=== PATIENT | female | born 1975 | race Caucasian/White ===

== ENCOUNTER 2023-12-24 16:22 | Emergency (ER) | payer BC, SELFPAY ==
[2023-12-24 16:26] VITALS: BP 147/89; PULSE 87; RESP 18; TEMP 37.9; O2SAT 97; BMI 31.9
[2023-12-24 17:01] LABS: Influenza Virus A Antigen Negative; Influenza Virus B Antigen Negative; Internal Control Within Normal Limits; SARS-CoV-2 Ag NEGATIVE (NEGATIVE)
[2023-12-24 17:19] VITALS: BP 128/81; PULSE 82; RESP 18; O2SAT 97
--- NOTE | 2023-12-24 17:28 | ED_ITS ---
HPI - General Adult General Chief complaint: Upper Respiratory Infection Stated complaint: Upper Respiratory Infection Time Seen by Provider: 12/24/23 16:48 History of Present Illness HPI narrative: This patient is here for abrupt onset of aches pains chills fever today. She actually does not have a sore throat. She has no runny nose sneezing or coughing. No shortness of breath or wheezing. No urinary symptoms such as frequency urination, no hematuria or dysuria. She does not have any back or flank pain. She has not had any diarrhea. She has not lost any sense of smell. She is otherwise healthy is not on any antibiotics or immune suppressing medications. We have seen multiple multiple patients with influenza today. Related Data Home Medications Medication Instructions Recorded Confirmed No Known Home Medications 12/24/23 12/24/23 Allergies Allergy/AdvReac Type Severity Reaction Status Date / Time No Known Drug Allergies Allergy Verified 12/24/23 16:26 PFSH PFS Social History Smoking status: Current every day smoker Exam Narrative Exam Narrative: Awake alert [place] x 3 no meningeal irritation confusion or altered mental status. She has a low-grade fever. HEENT shows her neck to be soft and supple. Her oropharynx does not show any exudate enanthem's or vesicles. Voice is normal there is no stridor. There is no rhinitis. There is no conjunctivitis. Her lungs are completely clear with no wheeze rales or rhonchi. There is no bronchospasm. Her abdomen is soft and supple with no guarding masses rebound rigidity or tenderness to palpation. Her skin integument is without petechiae purpura rash or any type of exanthem or rash at all. Her joints are not red hot warm or swollen. Constitutional Vital Signs, click to edit/add: Last Vital Signs Temp 100.2 F 12/24/23 16:26 Pulse 82 12/24/23 17:19 Resp 18 12/24/23 17:19 BP 128/81 12/24/23 17:19 Pulse Ox 97 12/24/23 17:19 O2 Del Method Room Air 12/24/23 16:26 Course Vital Signs Vital signs: Vital Signs Temperature 100.2 F 12/24/23 16:26 Pulse Rate 87 12/24/23 16:26 Respiratory Rate 18 12/24/23 16:26 Blood Pressure 147/89 H 12/24/23 16:26 Pulse Oximetry 97 12/24/23 16:26 Oxygen Delivery Method Room Air 12/24/23 16:26 Temperature 100.2 F 12/24/23 16:26 Pulse Rate 82 12/24/23 17:19 Respiratory Rate 18 12/24/23 17:19 Blood Pressure 128/81 12/24/23 17:19 Pulse Oximetry 97 12/24/23 17:19 Oxygen Delivery Method Room Air 12/24/23 16:26 Medical Decision Making MDM Narrative Medical decision making narrative: This patient has classic influenza / viral symptomatology but her testing is negative so far. There is a remote possibility, even though she is asymptomatic that she does have a UTI so urinalysis was done and does not suggest infectious process. At this stage supportive care was advised. Her abdominal examination is normal. There is no evidence of upper respiratory infection at this time. Close follow-up and returning to the ER should the symptoms progress were advised Lab Data Labs: Lab Results 12/24/23 12/24/23 Range/Units 16:30 17:39 Urine Color Yellow (YELLOW) Urine Clarity Clear (CLEAR) Urine pH 5.5 (5.0-9.0) Ur Specific [place] 1.025 (1.005-1.025) Urine Protein Negative (NEG/TRACE) mg/dL Urine Glucose (UA) Negative (NEGATIVE) mg/dL Urine Ketones Trace A (NEGATIVE) mg/dL Urine Occult Blood Moderate A (NEGATIVE) Urine Nitrite Negative (NEGATIVE) Urine Bilirubin Negative (NEGATIVE) Urine Urobilinogen 0.2 (0.2-1.0) EU/dL Ur Leukocyte Esterase Negative (NEGATIVE) Urine RBC 10-20 A (0-2) #/HPF Urine WBC None seen (NONE SEEN) #/HPF Ur Squamous Epith Cells Few A (NONE/RARE) #/LPF Urine Crystals None seen (None Seen) #/HPF Urine Bacteria Trace A (NONE SEEN) #/HPF Urine Casts None seen (NONE SEEN) #/LPF Urine Mucus None seen (NONE SEEN) Ur Culture Indicated? No Influenza Type A Ag Negative Influenza Type B Ag Negative SARS-CoV-2 Ag (CV2AG) Negative (NEGATIVE) Discharge Plan Discharge Chief Complaint: Upper Respiratory Infection Clinical Impression: Viremia Patient Disposition: Home, Self-Care Time of Disposition Decision: 18:36 Prescriptions / Home Meds: No Action No Known Home Medications Additional Instructions: Tylenol taken with ibuprofen for fever control. Push plenty of fluids. Recheck in 48 hours if not improved or any deterioration Stand Alone Forms: Portal Instructions Referrals: Physician,Non-Staff, MD [Primary Care Provider] - 1 week
[2023-12-24] MEDS: IBUPROFEN 600 MG TABLET PO (17:40)
[2023-12-24 17:55] LABS: Bilirubin Urine NEGATIVE (NEGATIVE); Blood Urine MODERATE (NEGATIVE); Clarity Urine CLEAR (CLEAR); Color Urine YELLOW (YELLOW); Glucose Urine UA NEGATIVE (NEGATIVE); Ketones Urine TRACE mg/dL (NEGATIVE); Leukocyte Esterase Urine NEGATIVE (NEGATIVE); Nitrite Urine NEGATIVE (NEGATIVE); Protein Urine NEGATIVE (NEG/TRACE); Specific Gravity Urine 1.025 (1.005-1.025); Urobilinogen Urine 0.2 EU/dL (0.2-1.0); pH Urine 5.5 (5.0-9.0)
[2023-12-24 17:58] LABS: Urine Microscopic Indicated YES
[2023-12-24 18:17] LABS: Bacteria Urine TRACE #/HPF (NONE SEEN); Cast Seen? NONE SEEN #/LPF (NONE SEEN); Crystals Seen? None Seen #/HPF (None Seen); Mucus Urine NONE SEEN (NONE SEEN); Squamous Epithelial Cell Urine FEW #/LPF (NONE/RARE); WBC Urine NONE SEEN #/HPF (NONE SEEN)
[2023-12-24 18:18] LABS: Urine Culture Indicated NO
== END 2023-12-24 18:52 | disposition home or self-care (01) ==
PROVIDERS: Emergency Provider Emergency Medicine Emergency Medical Services
DX: B34.9 Viral infection, unspecified (principal); F17.210 Nicotine dependence, cigarettes, uncomplicated; Z20.822 Contact with and (suspected) exposure to COVID-19
CPT/HCPCS: 81001; 87635; 87798; 87804; 87811; 99285